=== PATIENT | female | born 1990 | race Caucasian/White ===

== ENCOUNTER 2020-03-07 09:28 | Outpatient (REF) | payer OTHER, SELFPAY | END 2020-03-07 09:29 | disposition home or self-care (01) | LOC: HO.LAB 09:28 | PROVIDERS: Visit Provider Internal Medicine | DX: Z20.828 Contact with and (suspected) exposure to other viral communicable diseases (principal) | CPT/HCPCS: 36415; C9803; U0003 ==

== ENCOUNTER 2020-10-04 10:11 | Outpatient (REF) | payer OTHER, SELFPAY ==
[2020-10-04 10:43] LABS: Hematocrit 37.8 % (37-47); Hemoglobin 12.3 g/dl (12.0-16.0); Mean Corpuscular HGB Conc 32.5 g/dl (31.0-35.0); Mean Corpuscular Hemoglobin 28.7 pg (27.0-33.0); Mean Corpuscular Volume 88.3 fL (80-98); Mean Platelet Volume 10.7 fL (9.4-12.3); Platelet Count 291 X10*3/uL (160-400); Red Blood Count 4.28 X10*6/uL (4.20-5.50); Red Cell Distribution Width 13.2 % (11.0-16.0); White Blood Count 6.7 X10*3/uL (4.8-10.8)
[2020-10-04 11:08] LABS: Alanine Aminotransferase 16 U/L (0-31); Albumin Level 4.5 g/dL (3.5-5.0); Alkaline Phosphatase 72 U/L (39-117); Anion Gap 12 (12-20); Aspartate Amino Transferase 22 U/L (5-31); Bilirubin Total 0.3 mg/dL (0.0-1.0); Blood Urea Nitrogen 16 mg/dL (9-16); Calcium 9.4 mg/dL (8.4-10.2); Carbon Dioxide 22 mmol/L (22-29); Chloride 109 mmol/L (96-108); Cholesterol 132 mg/dL; Estimated Glomerular Filt Rate > 60; Gamma Glutamyl Transpeptidase 18 U/L (7-33); Glucose Random 90 mg/dL (60-115); HDL Cholesterol 42 mg/dL; LDL Cholesterol Calculated 84 mg/dl; Potassium 4.3 mmol/L (3.3-5.1); Sodium 139 mmol/L (135-145); Total Protein 7.2 g/dL (6.5-8.0); Triglycerides 32 mg/dL
[2020-10-04 11:27] LABS: Free T4 (Free Thyroxine) 0.97 ng/dL (0.71-1.85); Thyroid Stimulating Hormone 1.25 uIU/mL (0.32-4.0)
[2020-10-06 12:31] LABS: Follicle Stimulating Hormone 6.4 mIU/mL; Lutenizing Hormone 6.3 mIU/mL
[2020-10-07 11:36] LABS: Calcium (PTHI) 9.5 mg/dL (8.6-10.2); PTHI 41 pg/mL (14-64)
[2020-10-07 12:16] LABS: CRP High Sensitivity 1.1 mg/L
[2020-10-07 13:26] LABS: Thyroglobulin 9.3 ng/mL; Thyroglobulin Antibodies <1 IU/mL (< or = 1); Thyroid Peroxidase Antibodies <1 IU/mL (<9)
[2020-10-07 18:07] LABS: DHEA Sulfate 167 mcg/dL (23-266); Insulin Level Total 3.5 uIU/mL
[2020-10-08 02:12] LABS: Sex Hormone Binding Globulin 43 nmol/L (17-124)
[2020-10-10 12:36] LABS: Triiodothyronine T3 Reverse 14 ng/dL (8-25)
[2020-10-10 19:01] LABS: Progesterone <0.1 ng/mL
[2020-10-10 19:16] LABS: Estradiol Free 1.47 pg/mL; Estradiol, Ultrasensitive 61 pg/mL
[2020-10-11 11:45] LABS: Testosterone, Free 2.5 pg/mL (0.1-6.4); Testosterone, Total 20 ng/dL (2-45)
== END 2020-10-04 10:12 | disposition home or self-care (01) ==
LOC: HO.LAB 10:11
PROVIDERS: Visit Provider Internal Medicine
DX: E66.01 Morbid (severe) obesity due to excess calories (principal); E03.9 Hypothyroidism, unspecified; E28.2 Polycystic ovarian syndrome; D64.9 Anemia, unspecified; E55.9 Vitamin D deficiency, unspecified; E78.5 Hyperlipidemia, unspecified; R53.83 Other fatigue; K76.0 Fatty (change of) liver, not elsewhere classified
CPT/HCPCS: 36415; 80053; 80061; 82306; 82627; 82670; 82681; 82977; 83001; 83002; 83090; 83525; 83970; 84144; 84270; 84402; 84403; 84432; 84439; 84443; 84481; 84482; 85027; 86141; 86376; 86800

== ENCOUNTER 2021-01-01 15:58 | Outpatient (REF) | payer OTHER, SELFPAY ==
[2021-01-01 16:24] LABS: Hematocrit 36.4 % (37.0-47.0); Hemoglobin 11.8 g/dl (12.0-16.0); Mean Corpuscular HGB Conc 32.4 g/dl (31.0-35.0); Mean Corpuscular Hemoglobin 29.1 pg (27.0-33.0); Mean Corpuscular Volume 89.9 fL (80.0-98.0); Mean Platelet Volume 10.7 fL (9.4-12.3); Platelet Count 291 X10*3/uL (160-400); Red Blood Count 4.05 X10*6/uL (4.20-5.50); White Blood Count 9.3 X10*3/uL (4.8-10.8)
[2021-01-01 16:47] LABS: Alanine Aminotransferase 24 U/L (0-31); Albumin Level 4.3 g/dL (3.5-5.0); Alkaline Phosphatase 69 U/L (39-117); Anion Gap 10 (12-20); Aspartate Amino Transferase 27 U/L (5-31); Bilirubin Total 0.2 mg/dL (0.0-1.0); Blood Urea Nitrogen 13 mg/dL (9-16); Calcium 9.1 mg/dL (8.4-10.2); Carbon Dioxide 26 mmol/L (22-29); Chloride 103 mmol/L (96-108); Estimated Glomerular Filt Rate > 60; Glucose Random 101 mg/dL (60-115); Potassium 4.1 mmol/L (3.3-5.1); Sodium 135 mmol/L (135-145); Total Protein 6.9 g/dL (6.5-8.0)
[2021-01-01 17:12] LABS: Insulin 11 uU/mL (2-29)
[2021-01-03 05:12] LABS: Follicle Stimulating Hormone 20.6 mIU/mL; Lutenizing Hormone 36.8 mIU/mL
[2021-01-05 21:31] LABS: Estrogen 315.4 pg/mL
[2021-01-06 16:02] LABS: Testosterone, Free 2.9 pg/mL (0.1-6.4); Testosterone, Total 27 ng/dL (2-45)
[2021-01-07 18:26] LABS: Progesterone 0.5 ng/mL
[2021-01-09 00:10] LABS: Dihydrotestosterone <5 ng/dL (< OR = 20)
== END 2021-01-01 15:59 | disposition home or self-care (01) ==
LOC: HO.LAB 15:58
PROVIDERS: PCP Nurse Practitioner Family; Visit Provider Nurse Practitioner Adult Health
DX: E66.01 Morbid (severe) obesity due to excess calories (principal); E55.9 Vitamin D deficiency, unspecified; N95.9 Unspecified menopausal and perimenopausal disorder
CPT/HCPCS: 36415; 80053; 82306; 82642; 82672; 83001; 83002; 83525; 84144; 84402; 84403; 85027

== ENCOUNTER 2021-03-13 10:57 | Outpatient (REF) | payer OTHER, SELFPAY ==
[2021-03-13 11:55] LABS: Hematocrit 37.1 % (37.0-47.0); Hemoglobin 12.3 g/dl (12.0-16.0); Mean Corpuscular HGB Conc 33.2 g/dl (31.0-35.0); Mean Corpuscular Hemoglobin 29.9 pg (27.0-33.0); Mean Corpuscular Volume 90.3 fL (80.0-98.0); Mean Platelet Volume 10.9 fL (9.4-12.3); Platelet Count 315 X10*3/uL (160-400); Red Blood Count 4.11 X10*6/uL (4.20-5.50); Red Cell Distribution Width 12.6 % (11.0-16.0); White Blood Count 7.7 X10*3/uL (4.8-10.8)
[2021-03-13 12:44] LABS: Alanine Aminotransferase 14 U/L (0-31); Albumin Level 4.2 g/dL (3.5-5.0); Alkaline Phosphatase 53 U/L (39-117); Anion Gap 11 (12-20); Aspartate Amino Transferase 17 U/L (5-31); Bilirubin Total 0.2 mg/dL (0.0-1.0); Blood Urea Nitrogen 16 mg/dL (9-16); Calcium 9.5 mg/dL (8.4-10.2); Carbon Dioxide 23 mmol/L (22-29); Chloride 106 mmol/L (96-108); Estimated Glomerular Filt Rate > 60; Glucose Random 100 mg/dL (60-115); Potassium 4.5 mmol/L (3.3-5.1); Sodium 135 mmol/L (135-145); Total Protein 7.2 g/dL (6.5-8.0)
[2021-03-13 12:50] LABS: Free T4 (Free Thyroxine) 0.94 ng/dL (0.71-1.85); Thyroid Stimulating Hormone 1.32 uIU/mL (0.32-4.0); Vitamin D 25-OH Total 66.6 ng/mL (>30)
[2021-03-13 12:53] LABS: Vitamin B12 444 pg/mL (200-900)
[2021-03-13 13:21] LABS: Insulin 13 uU/mL (2-29)
[2021-03-14 18:12] LABS: Thyroglobulin Antibodies <1 IU/mL (< or = 1); Thyroid Peroxidase Antibodies <1 IU/mL (<9)
[2021-03-14 19:21] LABS: Triiodothyronine T3 Free 3.3 pg/mL (2.3-4.2)
[2021-03-14 19:56] LABS: Follicle Stimulating Hormone 1.7 mIU/mL; Lutenizing Hormone 0.2 mIU/mL
[2021-03-14 22:31] LABS: DHEA Sulfate 185 mcg/dL (23-266)
[2021-03-17 13:01] LABS: Progesterone <0.1 ng/mL
[2021-03-18 14:26] LABS: Testosterone, Free 0.6 pg/mL (0.1-6.4); Testosterone, Total 16 ng/dL (2-45)
[2021-03-19 15:51] LABS: Thyroid Stimulating Immunoglob <89 % baseline (<140)
[2021-03-19 20:46] LABS: Dihydrotestosterone 6 ng/dL (< OR = 20)
[2021-03-20 10:52] LABS: Triiodothyronine T3 Reverse 16 ng/dL (8-25)
[2021-03-28 12:32] LABS: Estradiol Free 0.06 pg/mL; Estradiol, Ultrasensitive 6 pg/mL
== END 2021-03-13 10:58 | disposition home or self-care (01) ==
LOC: HO.LAB 10:57
PROVIDERS: Visit Provider Nurse Practitioner Adult Health
DX: E66.01 Morbid (severe) obesity due to excess calories (principal)
CPT/HCPCS: 36415; 80053; 82306; 82607; 82627; 82642; 82670; 82681; 83001; 83002; 83525; 84144; 84402; 84403; 84439; 84443; 84445; 84481; 84482; 85027; 86376; 86800

== ENCOUNTER 2021-08-29 08:42 | Outpatient (REF) | payer OTHER, SELFPAY ==
[2021-08-29 09:24] LABS: MANUAL DIFF FLAG NO
[2021-08-29 10:10] LABS: Basophils Percent Auto 0.6 % (0-2); Eosinophils Absolute Auto 0.1 X10*3/uL (0.0-0.4); Eosinophils Percent Auto 1.9 % (0-4); Hematocrit 39.9 % (37.0-47.0); Hemoglobin 12.6 g/dl (12.0-16.0); Imm Gran Abs Auto 0.01 X10*3/uL (0.00-0.03); Imm Gran Pct Auto 0.2 % (0.0-0.4); Lymphocytes Absolute Auto 2.2 X10*3/uL (1.2-4.9); Lymphocytes Percent Auto 34.6 % (20-40); Mean Corpuscular HGB Conc 31.6 g/dl (31.0-35.0); Mean Corpuscular Hemoglobin 28.6 pg (27.0-33.0); Mean Corpuscular Volume 90.7 fL (80.0-98.0); Mean Platelet Volume 11.4 fL (9.4-12.3); Monocytes Absolute Auto 0.6 X10*3/uL (0.1-1.2); Monocytes Percent Auto 9.8 % (2-11); Neutrophils Absolute Auto 3.4 x10*3/uL (2.0-8.3); Neutrophils Percent Auto 52.9 % (45-73); Platelet Count 299 X10*3/uL (160-400); Red Cell Distribution Width 12.6 % (11.0-16.0); White Blood Count 6.3 X10*3/uL (4.8-10.8)
[2021-08-29 10:48] LABS: Alanine Aminotransferase 19 U/L (0-31); Alkaline Phosphatase 65 U/L (39-117); Anion Gap 13 (12-20); Aspartate Amino Transferase 18 U/L (5-31); Bilirubin Total 0.2 mg/dL (0.0-1.0); Blood Urea Nitrogen 18 mg/dL (9-16); Calcium 9.2 mg/dL (8.4-10.2); Carbon Dioxide 22 mmol/L (22-29); Chloride 108 mmol/L (96-108); Cholesterol 141 mg/dL; Estimated Glomerular Filt Rate > 60; Glucose Fasting 98 mg/dL (60-99); HDL Cholesterol 52 mg/dL; LDL Cholesterol Calculated 80 mg/dl; Potassium 4.6 mmol/L (3.3-5.1); Sodium 138 mmol/L (135-145); Total Protein 6.8 g/dL (6.5-8.0); Triglycerides 45 mg/dL
[2021-08-29 10:53] LABS: Appearance Urine CLEAR; Color Urine YELLOW; Glucose Urine UA NEG (NEG); Leukocyte Esterase Urine NEG (NEG); Nitrite Urine NEG (NEG); Urine Blood 1+ (NEG); Urine Ketones NEG (NEG); Urine Protein NEG (NEG-TRACE)
[2021-08-29 10:57] LABS: HBS Num1 115.75 mIU/mL (0-7.99); HBc Num1 0.06 S/CO (0.00-0.79); HBsAGNum1 0.19 S/CO (0.00-0.99); HIV AB/AG Nonreactive (Nonreactive); HIV Num 1 0.07 S/CO (0.00-0.99); Hepatitis B Core Antibody Nonreactive (Nonreactive); Hepatitis B Surface Antigen Negative (Negative); ~HepC Num1 0.11 S/CO (0.00-0.79); ~Hepatitis B Surface Antibody REACTIVE (Nonreactive); ~Hepatitis C Antibody Nonreactive (Nonreactive)
[2021-08-29 11:01] LABS: Syphilis Screen Nonreactive (Nonreactive)
[2021-08-29 11:09] LABS: TSH reflex Free T4 1.33 uIU/mL (0.32-4.0)
[2021-08-29 11:45] LABS: Bacteria Urine 1+ /LPF; Squamous Epithelial Cell Urine 1+ /LPF
[2021-08-29 11:46] LABS: RBC Urine 0-2 /HPF (0)
== END 2021-08-29 08:43 | disposition home or self-care (01) ==
LOC: HO.LAB 08:42
PROVIDERS: PCP Family Medicine; Visit Provider Family Medicine
DX: Z00.00 Encounter for general adult medical examination without abnormal findings (principal); Z11.3 Encounter for screening for infections with a predominantly sexual mode of transmission
CPT/HCPCS: 36415; 80053; 80061; 81001; 84443; 85025; 86704; 86706; 86780; 86803; 87340; 87389

== ENCOUNTER 2022-01-09 20:18 | Emergency (ER) | payer OTHER, SELFPAY ==
--- NOTE | 2022-01-09 | ECG_ITS ---
Test Reason : CHEST PAIN Blood Pressure : / mmHG Vent. Rate : 081 BPM Atrial Rate : 081 BPM P-R Int : 140 ms QRS Dur : 080 ms QT Int : 356 ms P-R-T Axes : 052 079 043 degrees QTc Int : 413 ms Normal sinus rhythm Normal ECG No previous ECGs available Referred By: Generic ED Physician Electronically Signed By:JOSSE HEBERT MD
--- NOTE | ~2022-01-09 | XR_ITS ---
EXAMINATION: XR chest 2V CLINICAL INFORMATION: Reason for Exam palpitations COMPARISON: None TECHNIQUE: 2 views of the chest FINDINGS: Clear lungs. No pneumothorax or pleural effusion. Normal cardiomediastinal silhouette. XR/XR chest 2V Impression: * Clear lungs.
[2022-01-09 20:20] VITALS: BP 137/92; PULSE 94; RESP 18; TEMP 36.4; O2SAT 96; BMI 27.2
[2022-01-09 20:47] LABS: MANUAL DIFF FLAG NO
[2022-01-09 20:49] LABS: Basophils Percent Auto 0.5 % (0-2); Eosinophils Absolute Auto 0.1 X10*3/uL (0.0-0.4); Eosinophils Percent Auto 1.3 % (0-4); Hematocrit 37.6 % (37.0-47.0); Hemoglobin 12.5 g/dl (12.0-16.0); Imm Gran Abs Auto 0.03 X10*3/uL (0.00-0.03); Imm Gran Pct Auto 0.3 % (0.0-0.4); Lymphocytes Absolute Auto 2.6 X10*3/uL (1.2-4.9); Lymphocytes Percent Auto 30.1 % (20-40); Mean Corpuscular HGB Conc 33.2 g/dl (31.0-35.0); Mean Corpuscular Hemoglobin 28.7 pg (27.0-33.0); Mean Corpuscular Volume 86.4 fL (80.0-98.0); Mean Platelet Volume 9.9 fL (9.4-12.3); Monocytes Absolute Auto 0.8 X10*3/uL (0.1-1.2); Monocytes Percent Auto 9.5 % (2-11); Neutrophils Percent Auto 58.3 % (45-73); Platelet Count 336 X10*3/uL (160-400); Red Blood Count 4.35 X10*6/uL (4.20-5.50); Red Cell Distribution Width 12.7 % (11.0-16.0); White Blood Count 8.6 X10*3/uL (4.8-10.8)
[2022-01-09 21:01] LABS: D Dimer High Sensitivity 169 NG/ML
[2022-01-09 21:10] LABS: Troponin-I High Sensitivity < 3.5 ng/L (<3.5-17.0)
[2022-01-09 22:59] VITALS: BP 138/79; PULSE 97; RESP 18; TEMP 36.4; O2SAT 96
--- NOTE | 2022-01-09 23:37 | ED_ITS ---
HPI - Arrhythmia/Palpitations General Chief Complaint: Arrhythmia/Palpitations Stated Complaint: Chest palpitations Time Seen by Provider: 01/09/22 23:16 Source: patient Mode of arrival: ambulatory Limitations: no limitations History of Present Illness HPI narrative: This is a 31-year-old female past medical history significant for difficulty concentrating, PCOS, anxiety, depression presenting to the emergency department with intermittent palpitations for the last few weeks. Patient tells me that she gets fluttering/palpitations in her chest lasting a few seconds (intermittently), she tells me she has never had this before. She tells me that this has been going on ever since she stopped taking her amphetamines. Patient does report she has a history of anxiety and has been feeling anxious lately as she is taking 3 college courses and practices jujitsu frequently she tells me she is under lot of stress and she is not sure of this could be anxiety. Denies personal and family cardiac history. No history of DVT or PE. Denies shortness of breath, nausea, vomiting, headache, vision changes, dizziness, weakness, leg swelling, long travel, cancer, patient not a smoker. Related Data Home Medications Medication Instructions Recorded Confirmed bupropion HCl 300 mg 24 hr tablet, 300 mg PO QAM 08/20/21 08/20/21 extended release buspirone 10 mg tablet 10 mg PO TID 08/20/21 08/20/21 drospirenone 3 mg-ethinyl 1 tab PO DAILY 08/20/21 08/20/21 estradiol 0.03 mg tablet (Mary) metformin 500 mg tablet 500 mg PO DAILY 08/20/21 08/20/21 valacyclovir 500 mg tablet 500 mg PO DAILY 08/20/21 08/20/21 Previous Rx's Medication Instructions Recorded valacyclovir 500 mg tablet 500 mg PO Q12H 14 days #28 tabs 08/20/21 Allergies Allergy/AdvReac Type Severity Reaction Status Date / Time Penicillins [PCN] Allergy Unknown HIVES Verified 08/20/21 10:07 Review of Systems Review of Systems: Constitutional : No Weight loss, No Fever, No Chills, No Fatigue, No Malaise ENT/Mouth : No sore throat, No Rhinorrhea Eyes: No Eye Pain, No Swelling, No Redness Cardiovascular : No Chest Pain, No SOB, No Dyspnea on Exertion, No Orthopnea, No Edema, + Palpitations Respiratory : No Cough, No Sputum, No Wheezing Gastrointestinal : No Nausea, No Vomiting, No Diarrhea, No Constipation, No abdominal Pain, No Hematochezia, No Melena Genitourinary : No Dysuria, No Urinary Frequency, No Hematuria, Musculoskeletal : No joint pain, No Myalgias, No Joint Swelling Skin : No Skin Lesions, No rash Neuro : No Weakness, No Numbness, No Dizziness, No Headache Psych : No Anxiety/Panic, No Depression All other systems reviewed and are negative Yes all other systems are reviewed and are negative [facility] Social History Social History Housing: House Patient Tobacco Use Status: Never used Tobacco e-Cigarette/Vaping Use: Never Used Second Hand Smoke Exposure: No Advance Directives: No Advance Directives Information Provided: Yes service: No Current occupational status: employed Current occupational exposures/hazards: No Cognitive needs: No Hearing needs: No Vision needs: Yes Physical Exam Vital Signs: Vital Signs: Last Vital Signs Temp 97.5 F 01/09/22 22:59 Pulse 97 01/09/22 22:59 Resp 18 01/09/22 22:59 BP 138/79 01/09/22 22:59 Pulse Ox 96 01/09/22 22:59 O2 Del Method 01/09/22 22:59 BMI result Body Mass Index 27.2 Course Reevaluation(s) Reevaluation #1: CBC within normal limits. Troponin negative, EKG nonischemic, unlikely ACS. D- dimer negative, unlikely PE. Chest x-ray with no acute findings. Time: 23:41 Reevaluation #2: Second troponin negative, EKG nonischemic unlikely ACS. I suspect this is likely anxiety or withdrawal from amphetamines. At this time I feel comfortable discharge home with prompt PCP and cardiology follow-up. Educated on worrisome signs and symptoms and when to return Time: 00:08 MDM - Arrhythmia/Palpitations MDM Narrative Medical decision making narrative: [id number] 31-year-old female presents with palpitations status post discontinuing her Mack means a few weeks ago. Physical examination benign. Regular rate and rhythm, lungs clear, abdomen soft nontender nondistended. Negative Lisa bilaterally. Hemodynamically stable. Plan at this time is to obtain basic labs, troponin, D-dimer, EKG. Unlikely that this is ACS or dysrhythmia, likely secondary to discontinuation of amphetamine/withdrawal. Medical Records Attestation: I reviewed the patient's medical records. Lab Data Attestation: I reviewed the patient's lab results. Result diagrams: 01/09/22 20:42 01/09/22 23:30 Labs: Lab Results 01/09/22 01/09/22 01/09/22 Range/Units 20:42 20:42 20:42 WBC 8.6 (4.8-10.8) X10*3/uL RBC 4.35 (4.20-5.50) X10*6/uL Hgb 12.5 (12.0-16.0) g/dl Hct 37.6 (37.0-47.0) % MCV 86.4 (80.0-98.0) fL MCH 28.7 (27.0-33.0) pg MCHC 33.2 (31.0-35.0) g/dl RDW 12.7 (11.0-16.0) % Plt Count 336 (160-400) X10*3/uL MPV 9.9 (9.4-12.3) fL Immature Gran % (Auto) 0.3 (0.0-0.4) % Neut % (Auto) 58.3 (45-73) % Lymph % (Auto) 30.1 (20-40) % Steele % (Auto) 9.5 (2-11) % Eos % (Auto) 1.3 (0-4) % Baso % (Auto) 0.5 (0-2) % Lymph # (Auto) 2.6 (1.2-4.9) X10*3/uL Steele # (Auto) 0.8 (0.1-1.2) X10*3/uL Eos # (Auto) 0.1 (0.0-0.4) X10*3/uL Baso # (Auto) 0.0 (0.0-0.2) X10*3/uL Abs Immat Gran (auto) 0.03 (0.00-0.03) X10*3/uL Absolute Neuts (auto) 5.0 (2.0-8.3) x10*3/uL Absolute Nucleated RBC 0.000 (0.0-0.012) X10*3/uL Nucleated RBC % (auto) 0.0 (0.0-0.2) /100WBC D-Dimer High Sensitivty 169 NG/ML Sodium 135 (135-145) mmol/L Potassium 4.0 (3.3-5.1) mmol/L Chloride 104 (96-108) mmol/L Carbon Dioxide 17 L (22-29) mmol/L Anion Gap 18 (12-20) BUN 20 H (9-16) mg/dL Creatinine 0.79 (0.5-1.4) mg/dL Estim Creat Clear Calc 80.6 Estimated GFR > 60 Random Glucose 123 H (60-115) mg/dL Calcium 9.4 (8.4-10.2) mg/dL Total Bilirubin 0.2 (0.0-1.0) mg/dL AST 25 (5-31) U/L ALT 30 (0-31) U/L Alkaline Phosphatase 77 (39-117) U/L Troponin I High Sens (<3.5-17.0) ng/L Total Protein 7.1 (6.5-8.0) g/dL Albumin 4.3 (3.5-5.0) g/dL 01/09/22 01/09/22 01/09/22 Range/Units 20:42 23:30 23:30 WBC (4.8-10.8) X10*3/uL RBC (4.20-5.50) X10*6/uL Hgb (12.0-16.0) g/dl Hct (37.0-47.0) % MCV (80.0-98.0) fL MCH (27.0-33.0) pg MCHC (31.0-35.0) g/dl RDW (11.0-16.0) % Plt Count (160-400) X10*3/uL MPV (9.4-12.3) fL Immature Gran % (Auto) (0.0-0.4) % Neut % (Auto) (45-73) % Lymph % (Auto) (20-40) % Steele % (Auto) (2-11) % Eos % (Auto) (0-4) % Baso % (Auto) (0-2) % Lymph # (Auto) (1.2-4.9) X10*3/uL Steele # (Auto) (0.1-1.2) X10*3/uL Eos # (Auto) (0.0-0.4) X10*3/uL Baso # (Auto) (0.0-0.2) X10*3/uL Abs Immat Gran (auto) (0.00-0.03) X10*3/uL Absolute Neuts (auto) (2.0-8.3) x10*3/uL Absolute Nucleated RBC (0.0-0.012) X10*3/uL Nucleated RBC % (auto) (0.0-0.2) /100WBC D-Dimer High Sensitivty NG/ML Sodium 137 (135-145) mmol/L Potassium 3.6 (3.3-5.1) mmol/L Chloride 104 (96-108) mmol/L Carbon Dioxide 20 L (22-29) mmol/L Anion Gap 17 (12-20) BUN 22 H (9-16) mg/dL Creatinine 0.74 (0.5-1.4) mg/dL Estim Creat Clear Calc 86.0 Estimated GFR > 60 Random Glucose 102 (60-115) mg/dL Calcium 9.2 (8.4-10.2) mg/dL Total Bilirubin (0.0-1.0) mg/dL AST (5-31) U/L ALT (0-31) U/L Alkaline Phosphatase (39-117) U/L Troponin I High Sens < 3.5 < 3.5 (<3.5-17.0) ng/L Total Protein (6.5-8.0) g/dL Albumin (3.5-5.0) g/dL ECG Data Attestation: I personally reviewed and interpreted this ECG as follows: ECG interpretation date: 01/09/22 ECG interpretation time: 23:41 Prior ECG tracings: not available for review Interpretation: Ventricular rate of 81, DC normal, QRS normal, QT/QTC normal. EKG with normal sinus rhythm no ST elevations or inversions concerning for ischemia. No previous to compare with Critical Care Time Critical Care Time Critical Care Time: No Discharge Plan Discharge Clinical Impression: Palpitations, Anxiety Patient Disposition: Home, Self-Care Instructions: Heart Palpitations (DC) Additional Instructions: Take your medications as prescribed. If you were prescribed antibiotics today, it is important that you take your medication to their entirety, do not skip a ny doses, do not finish them early. Follow-up with your primary care provider this week. Return to the emergency department with new or worsening symptoms. Such as fevers, chills, chest pain, shortness of breath, nausea, vomiting, dizziness, headache, vision changes, lethargy In case of emergency call 911 If pain persists she may want to follow up with Cardiology, you may benefit from Holter monitor if this is the case. Information below for cardiology follow-up in consult. If you began to experience symptoms again or developed chest pain, shortness of breath, leg swelling please return with new or worsening symptoms Prescriptions: No Action metformin 500 mg tablet 500 mg PO DAILY bupropion HCl 300 mg tablet extended release 24 hr 300 mg PO QAM buspirone 10 mg tablet 10 mg PO TID drospirenone-ethinyl estradiol [Mary] 3-0.03 mg tablet 1 tab PO DAILY valacyclovir 500 mg tablet 500 mg PO DAILY valacyclovir 500 mg tablet 500 mg PO Q12H 14 Days Qty: 28 2RF Referrals: [facility] [place] Cardiovascular Services [Provider Group] ED Physician,Generic [Emergency Provider] - 2 days Physician,Unknown J [Physician] - 2 days Stand Alone Forms: Work/School Release
[2022-01-09 23:56] LABS: Troponin-I High Sensitivity < 3.5 ng/L (<3.5-17.0)
[2022-01-10 00:02] LABS: Anion Gap 17 (12-20); Blood Urea Nitrogen 22 mg/dL (9-16); Calcium 9.2 mg/dL (8.4-10.2); Carbon Dioxide 20 mmol/L (22-29); Chloride 104 mmol/L (96-108); Estimated Glomerular Filt Rate > 60; Glucose Random 102 mg/dL (60-115); Potassium 3.6 mmol/L (3.3-5.1); Sodium 137 mmol/L (135-145)
[2022-01-10 00:05] LABS: Alanine Aminotransferase 30 U/L (0-31); Albumin Level 4.3 g/dL (3.5-5.0); Alkaline Phosphatase 77 U/L (39-117); Anion Gap 18 (12-20); Aspartate Amino Transferase 25 U/L (5-31); Bilirubin Total 0.2 mg/dL (0.0-1.0); Blood Urea Nitrogen 20 mg/dL (9-16); Calcium 9.4 mg/dL (8.4-10.2); Carbon Dioxide 17 mmol/L (22-29); Chloride 104 mmol/L (96-108); Creatinine Clr Calc Pharmacy 80.6; Estimated Glomerular Filt Rate > 60; Glucose Random 123 mg/dL (60-115); Sodium 135 mmol/L (135-145); Total Protein 7.1 g/dL (6.5-8.0)
[2022-01-10 00:26] VITALS: BP 141/85; PULSE 84; RESP 18; TEMP 37; O2SAT 99
--- NOTE | 2022-01-10 00:33 | PC.NURSE ---
Discharge instructions given and explained to patient. Patient ambulates safely and is A&O.
== END 2022-01-10 00:34 | disposition home or self-care (01) ==
PROVIDERS: Physician Assistant; Emergency Provider Student in an Organized Health Care Education/Training Program; PCP Internal Medicine
DX: R00.2 Palpitations (principal); F33.1 Major depressive disorder, recurrent, moderate; F41.9 Anxiety disorder, unspecified; Z79.899 Other long term (current) drug therapy
CPT/HCPCS: 36415; 71046; 80048; 80053; 84484; 85025; 85379; 93005; 99283; 99284

== ENCOUNTER → 2022-02-09 11:38 | Outpatient (REF) | payer OTHER, SELFPAY ==
--- NOTE | 2022-02-09 11:42 | HM_ITS ---
Cardiac event monitor Indication: Palpitations Technique: Patient was worked up to cardiac event monitor on 02/09/2022 for 30 days. Reported compliance rate was 57%. Quality of tracings were adequate Findings: Baseline was normal sinus rhythm with maximum heart rate 156 beats per minute minimal heart rate of 73 beats per minute. Frequent isolated PVCs noted with total burden of about 1%. There were no ventricular tachycardia noted Patient reported 9 events which mostly correlated with isolated PVCs. Conclusion: 1. Baseline was normal sinus rhythm 2. Frequent PVCs with total burden of about 1% 3. Patient reported events correlated with PVCs MTDD
== END ==
LOC: HO.CARD 11:38
PROVIDERS: PCP Internal Medicine; Visit Provider Physician Assistant
DX: R00.2 Palpitations (principal)
CPT/HCPCS: 93270

== ENCOUNTER → 2022-04-01 13:34 | Outpatient (BNVA) | payer OTHER, SELFPAY | PROVIDERS: PCP Internal Medicine; Visit Provider Nurse Practitioner Family | DX: R00.2 Palpitations (principal); I49.3 Ventricular premature depolarization ==

== ENCOUNTER → 2022-04-03 09:03 | Outpatient (REF) | payer OTHER, SELFPAY ==
--- NOTE | 2022-04-03 09:18 | CA_ITS ---
Transthoracic Echocardiogram Patient (Last, First, Middle): Ryann Garzon, Gender: Female Date of : 1990 Age: 32 Procedure Date: 04/03/2022 Procedure Type: Transthoracic Echocardiogram Location: OP Height: 149.86 cm Weight: 63.5 kg BSA: 1.58 m2 Heart Rate: 70 bpm BP: 110 / 60 mmHg Arabic Translator: CHON Andrews MD: Aleyda Contreras [employer] [facility] Symptoms: I49.3 - Ventricular premature depolarization Study Quality: Adequate ECG Rhythm: Sinus Conclusions: - Normal left ventricular size, thickness, systolic function, and wall motion. The visually estimated ejection fraction is between 55-60%. Diastolic function is normal for age. - Normal global longitudinal strain at -20%. - Normal right ventricular cavity size and systolic function. - No significant valvular or pericardial pathology. Findings Left Ventricle Normal left ventricular size, thickness, systolic function, and wall motion. The visually estimated ejection fraction is between 55-60%. Diastolic function is normal for age. Right Ventricle Normal right ventricular cavity size and systolic function. Atria Both atria are normal in size. There is no evidence of interatrial shunt by color Doppler. Aortic Valve Normal aortic valve structure and function. There is no aortic valve stenosis. There is no aortic valve regurgitation. Mitral Valve Normal mitral valve structure and function. There is no mitral valve regurgitation. There is no mitral valve stenosis. Pulmonic Valve Normal pulmonic valve structure and function. There is no pulmonic valve regurgitation. Tricuspid Valve Normal tricuspid valve structure and function. There is no tricuspid valve regurgitation. Tricuspid regurgitation envelope is inadequate for calculation of right ventricular systolic pressure. Normal right atrial pressure. Great Vessels All visible segments of the aorta are normal in size. The visualized portions of the pulmonary artery and branches are normal. Venous The inferior vena cava is normal in size and collapses greater than 50% with inspiration. Pericardium/Pleural There is no evidence of pericardial effusion. Prior Study Comparison No prior study available for comparison. Measurements 2D Linear Measurements IVSd: 0.53 0.6-0.9/0.6-1.0 cm LVIDd: 4.57 3.9-5.3/4.2-5.9 cm LVIDd Index: 2.89 2.4-3.2/2.2-3.1 cm/m2 LVIDs: 3.03 2.0-3.6 cm LVPWd: 0.70 0.7-1.1 cm LA Diam: 2.90 2.7-3.8/3.0-4.0 cm LAIDs Index: 1.84 1.5-2.3 cm/m2 LV Mass: 103.76 67-162/88-224 g LV Mass Index: 65.67 43-95/49-115 g/m2 LVOT Diam: 1.90 3.0+(-)1.3 cm 2D Systolic Function EF 4C: 63.00 >55% EF 2C: 54.10 >55% EF BiP: 58.50 >55% Mitral Valve MV Pk E: 0.80 MV PK A: 0.66 MV Decel Time: 153.00 E/A: 1.20 E'Lateral: 13.60 E'Medial: 11.00 E/E' Med: 7.30 E/E' Lat: 5.90 PHT: 45.00 MVA PHT: 4.89 Decel [place]: 5.35 Aortic Valve AoV Pk Michael: 1.28 AoV Mn Michael: 0.91 AoV VTI: 0.28 AoV Pk Grad: 7.00 Aov Mn Grad: 4.00 MAEVE Cont.VTI: 2.12 LVOT LVOT Pk Michael: 1.04 LVOT Mn Michael: 0.72 LVOT VTI: 0.21 LVOT Pk Grad: 4.00 LVOT Mn Grad: 2.00 LVOT Diam: 1.90 LVOT Area: 2.84 Diastolic Function MV Pk E: 0.80 MV Pk A: 0.66 E/A: 1.20 E'Medial: 11.00 E/E' Med: 7.30 E' Laterial: 13.60 E/E' Lat: 5.90 Right Ventricle TAPSE (mm): 21.50 TVS' Michael: 12.30 Tricuspid Valve RA Press: 3.00 Great Vessels Aorta Sinus of Valsalva: 2.50 2.0-3.5 cm Ao Asc: 2.30 2.1-3.4 cm Pulmonary Valve PV Pk Michael: 0.94 Peak PV Grad: 4.00 Updated in Other Vendor System with Status of Final Eliezer Hassan MD electronically signed on 04/05/2022 9:32:23 PM with status of Final
== END ==
LOC: HO.CARD 09:03
PROVIDERS: PCP Internal Medicine; Visit Provider Nurse Practitioner Family
DX: I49.3 Ventricular premature depolarization (principal); R00.2 Palpitations
CPT/HCPCS: 93306; 93356